=== PATIENT | male | born 1955 | race Caucasian/White ===

== ENCOUNTER 2017-02-06 12:54 | Day surgery (SDC) | payer BC ==
[~2017-02-06 12:54] MED LIST: RINGER'S SOLUTION,LACTATED 1,000 ML IV PRN
[2017-02-06] MEDS ORDERED: RINGER'S SOLUTION,LACTATED 1,000 ML IV ONE (13:54)
--- NOTE | 2017-02-06 15:19 | OR ---
Operative Report - Dictated Report Narrative: Date: 02/06/2017 Preoperative diagnosis: Screening for colon cancer Postoperative diagnosis: Rectal polyp at 5 cm Procedure: Total colonoscopy with biopsy Staff surgeon: Yovany Le MD Anesthesia: MAC per DOCUMENT CONTROL COORDINATOR EBL: minimal Specimen: Polyp at 5 cm Description: After informed consent and appropriate sedation the patient was placed in the left lateral decubitus position. A flexible fiberoptic video colonoscope was introduced and advanced under direct vision without difficulty to the cecum. The usual landmarks were identified. Preparation was excellent and excellent views were obtained. The findings were of a normal cecum, ascending colon, hepatic flexure, transverse colon, splenic flexure, descending colon, sigmoid colon. A rectal polyp was noted at approximately 5 cm. It was approximately 5 mm in size. This was biopsied with a cold forcep. The polyp was then grasped and destroyed with electrocautery. The mucosal color, vasculature, and texture were normal throughout. No suspicious masses were seen. The patient tolerated the procedure well without apparent complications and was discharged from the endoscopy suite in stable condition.
[2017-02-06 15:45] VITALS: BP 130/71
== END 2017-02-06 12:55 | disposition home or self-care (01) ==
LOC: AMB 12:54
PROVIDERS: ATTEND Specialist
PROC: 0DBP8ZX Excision of Rectum, Via Natural or Artificial Opening Endoscopic, Diagnostic (ICD-10-PCS; principal; 2017-02-06 15:30)
DX: Z12.11 Encounter for screening for malignant neoplasm of colon (principal); K62.1 Rectal polyp; I10 Essential (primary) hypertension; Z87.891 Personal history of nicotine dependence; Z68.39 Body mass index [BMI] 39.0-39.9, adult